=== PATIENT | female | born 1935 | race Caucasian/White ===

== ENCOUNTER 2024-04-28 08:53 | Inpatient (IN) | payer MEDICARE, SELFPAY ==
[2024-04-27 19:56] VITALS: BP 131/61; BMI 21.9
[2024-04-27 19:58] VITALS: BP 131/61
[2024-04-27 20:28] LABS: Hemoglobin 12.7 g/dL (12.0-16.0); Mean Corp Hgb Conc. 33.4 g/dL (33.0-37.0); Mean Corpuscular Volume 89.8 fL (81.0-99.0); Mean Platelet Volume 9.1 fL (7.4-10.4); Platelet Count 187 10^3/uL (130-400); Red Blood Cell Count 4.23 10^6/uL (4.20-5.40); Red Cell Dist. Width 17.2 % (11.5-14.5); White Blood Cell Count 6.8 10^3/uL (4.8-10.8)
--- NOTE | 2024-04-27 20:44 | ED.GENMED ---
History of Present Illness
General
Chief Complaint: Cardiac Symptoms
Source: patient
Time Seen by Provider: 04/27/24 19:53
Travel History
Have you had any contact with someone who has COVID-19?: No
Do you have any symptoms of coronavirus? Fever > 100 degrees, chills, cough, shortness of breath, sore throat, loss of taste or smell, muscle aches, or headache?: Yes
Symptoms:: SOB
History of Present Illness
History of Present Illness:
89-year-old female presents to the emergency room for evaluation of bradycardia, lethargy. Patient's [facility] She had been staying at a different facility where they were unhappy with her care.
While performing the intake protocol melany arellano found the patient to be lethargic and bradycardic. It was unclear if the patient had a history of bradycardia. She was sent for evaluation of this. Patient denies any symptoms at this time.
Specifically denies any chest pain, shortness of breath, dizziness. She has not had any syncopal episodes. No recent change in medications as far as the grandson knows. He has been in charge of her care for the past 2 months. Of note the patient
recently was found to have a mass in her left breast. This has not been worked up.
Past History
Past History
ED Past Medical History: CVA, Other (Gout, Osteroarthritis, Pagets) and Other (Kidney stones, meningioma, skin cancer, cataracts, rotator cuff injury, pancreatic cyst, DVT/PE); Negative Asthma, HTN, Hypercholesterolemia or NIDDM
ED Past Surgical History: Appendectomy and Gynecological (Hysterectomy)
Social History
Tobacco: Non-smoker
Alcohol: None
Drug: None
Personal:
Living: alone
Employment: Retired
Family History
Family History: Other ([place])
Phy Exam
Physical Exam
Physical Exam:
General: Awake, Alert, Oriented X3. No acute distress.
Vitals: Bradycardic, normotensive
Head: Atraumatic
Eyes: Pupils equal, EOMI
Throat: Airway intact, no exudates
Neck: Trachea midline
Breast: left breast has a roughly 2cm x 3cm mass located in outer-upper quadrant.
Lungs: Clear and equal b/l
Heart: bradycardic, Regular rate, no murmurs
Abd: Soft, Nontender, No pulsatile mass
Neuro: Nonfocal
Skin: Warm, dry, no rash
Extremities: pulses equal b/l, no edema
Course
Orders/Labs/Results
Orders:
Orders
04/27/24 19:55
Electrocardiogram (*1) Urgent
Reason for Study: Other
Other Reason for Exam: low hr
04/27/24 19:56
EKG- Treatment ONCE
04/27/24 20:13
Complete Blood Count/No Diff Urgent
Troponin I Urgent
04/27/24 20:43
Straight cath- Treatment ONCE
04/27/24 20:44
Cardiac Monitoring- Treatment ONCE
04/27/24 20:45
CT Head W/o Iv Contrast Urgent
Comment:
Reason For Exam: recent fall, headache
04/27/24 21:38
TSH Reflex To Free T4 Urgent
Urinalysis Reflex To Culture Urgent
Date Specimen was Collected: 04/27/24
Time Specimen was Collected: 21:08
Urine Microscopic Reflex Cult Urgent
Urine Culture Urgent
CYNTHIA Source: U
Specimen Description:
Date Specimen was Collected: 04/27/24
Time Specimen was Collected: 21:08
04/27/24 22:21
Comprehensive Metabolic Panel Urgent
Magnesium Urgent
Comment: ADD ON
04/27/24 22:55
Cephalexin Monohydrate [Keflex] 500 mg PO NOW STA
04/27/24 22:59
CefTRIAXone [Rocephin] 1,000 mg IV NOW STA
04/27/24 23:33
Admit/Transfer Patient As Directed
Co-Sign Provider:
Level of Care: Observation services
Assign to:: Telemetry
Physician / Group: meño
Diagnosis: UTI, bradycardia
Reason for Telemetry: Arrhythmia
Date to Stop Telemetry: 04/30/24
Time to Stop Telemetry: 11:00
Code Status As Directed
Resuscitation Status: Do not resuscitate
Reached after discussion with pt or family/Healthcare POA: Yes
04/27/24 23:34
DNR Bracelet Application ONCE
04/28/24 01:40
Acetaminophen [Tylenol] 650 mg PO Q4HPRN PRN
Magnesium Hydroxide [Milk of Magnesia] 30 ml PO [id number] PRN
04/28/24 01:40
CARDIOLOGY CONSULT Routine
Consulting Provider: Ky Bettencourt
Was physician already notified: No
Reason for consult: bradycardia
Consult Notification Routine
Specialty to Notify: Cardiology
Activity As Directed
Activity Level: As Tolerated
Vital Signs As Directed
Frequency: Per unit guidelines
DX Deep Vein Thrombosis Video Routine
04/28/24 02:00
0.9% Sodium Chloride 1000 ml [Nss] 1,000 ml IV 50 mls/hr
Flush (0.9% Sodium Chloride) [Flush (Nss)] See Dose Instructions IV PER PROTOCOL
04/28/24 Breakfast
Regular
At Your Request: Full Participation
Does patient need a safe tray?: No
04/28/24 07:00
Complete Blood Count/With Diff IN AM
Comprehensive Metabolic Panel IN AM
04/28/24 07:10
Ot Eval And Treat Routine
Pt Eval And Treat Routine
Activity Level: With Assistance
04/28/24 08:00
Acetaminophen [Tylenol] 500 mg PO BID
Heparin 5,000 units SC Q12
Levetiracetam [Keppra] 500 mg PO BID
Lidocaine [Lidocaine 4% Patch] 1 patch TOPICAL DAILY
Sertraline HCl [Zoloft] 50 mg PO DAILY
04/28/24 08:52
Bisacodyl [Dulcolax] 10 mg RECTAL NOW STA
04/28/24 09:00
Artificial Tears (Pf) [Refresh Eye Drops (Pf)] 1 drops OPHTH QID
04/28/24 Dinner
Regular
At Your Request: Non-Participating
Does patient need a safe tray?: No
04/28/24 18:00
Sennosides [Senokot] 17.2 mg PO QPM
04/28/24 20:00
Remove Patch [Remove Lidocaine Patch] 1 patch REMOVE DAILY@1999
04/29/24 00:00
CefTRIAXone [Rocephin] 1,000 mg IV Q24H
Sterile Water [Sterile Water For Injection] 10 ml IV Q24H
04/30/24 11:00
DC Protocol for Telemetry ONCE
Abnormal Lab Results
04/27/24 04/27/24 04/27/24
20:13 21:38 22:21
RBC
Hct
RDW 17.2 H %
(11.5-14.5)
Abs Immat Gran (auto)
Absolute Monos (auto)
Immature Gran %
Monocytes %
Chloride 109 H mmol/L
(98-107)
BUN 33 H mg/dl
(7-17)
Creatinine 1.1 H mg/dL
(0.6-1.0)
Glucose 105 H mg/dl
(70-99)
Alkaline Phosphatase 173 H U/L
(38-126)
Total Protein 5.6 L g/dl
(6.3-8.2)
Albumin 3.1 L g/dl
(3.5-5.0)
Ur Occult Blood Reflex Trace A
(Negative)
Urine Nitrite (Reflex) Positive A
(Negative)
Leukocyte Esterase Rfl 2+ A
(Negative)
Urine WBC (Reflex) 26-30 A /HPF
(0-5)
Urine Bacteria (Reflex) Many A
(Negative)
04/28/24
07:00
RBC 4.06 L 10^6/uL
(4.20-5.40)
Hct 36.7 L %
(37.0-47.0)
RDW 17.0 H %
(11.5-14.5)
Abs Immat Gran (auto) 0.1 H 10^3/uL
(0-0.05)
Absolute Monos (auto) 0.7 H 10^3/uL
(0.1-0.6)
Immature Gran % 0.9 H %
(0-0.5)
Monocytes % 11.1 H %
(1.7-9.3)
Chloride 111 H mmol/L
(98-107)
BUN 31 H mg/dl
(7-17)
Creatinine
Glucose
Alkaline Phosphatase 161 H U/L
(38-126)
Total Protein 5.4 L g/dl
(6.3-8.2)
Albumin 3.0 L g/dl
(3.5-5.0)
Ur Occult Blood Reflex
Urine Nitrite (Reflex)
Leukocyte Esterase Rfl
Urine WBC (Reflex)
Urine Bacteria (Reflex)
04/28/24 07:00
04/28/24 07:00
Vital Signs
Initial and Last Documented VS:
Initial Vital Signs
Pulse Resp Pulse Ox
48 14 99
04/27/24 19:55 04/27/24 19:55 04/27/24 19:55
Last Documented Vital Signs
Temp Pulse Resp BP Pulse Ox
97.7 F 52 18 146/108 96
04/28/24 11:58 04/28/24 14:31 04/28/24 14:31 04/28/24 14:31 04/28/24 10:45
MDM/Problems Addressed
Differential Diagnosis Includes:
Electrolyte abnormality, UTI, intracranial lesion causing [place] reflex such as a metastatic lesion,
MDM/Problems Addressed:
Patient presents with lethargy, left breast mass, possible urinary tract infection and bradycardia. EKG shows a sinus bradycardia with a first-degree AV block as well as some intraventricular conduction delay. Patient does not take any rate
lowering medications. Her QT is long as well. Urine is consistent with urinary tract infection. This becomes with Rocephin. Electrolytes are normal and not a cause for bradycardia. Unclear why the patient will be so bradycardic. During
previous admissions she has had normal sinus rhythm. Will hospitalize the patient overnight for observation, let cardiology see her in the morning to make sure they do not feel there is any intervention necessary for this bradycardia. Perhaps left
breast mass to be evaluated as well question
Chronic conditions affecting care: HTN
*Radiology
Radiology exam reviewed: radiology read reviewed
*Pulse Oximetry
Patient hypoxic: no
*EKG
Interpreted by ED Provider?: Yes
Interpretation: abnormal
Heart Rate: 46
Rate: bradycardiac
Rhythm: sinus
[place]: normal axis
Interval: first degree heart block
QRS Pattern: other (Nonspecific interventricular conduction delay)
Ischemia: non-specific ST changes
*[employer] Interpretation
Rate: bradycardiac
Interpretation: abnormal
Rhythm: sinus
*Critical Care Note
Total Time (30-74mins, 75-104mins- exclusive of procedures): Not Applicable
Patient Management
Social determinants of health affecting care: Living situation
ED Attending Note
-
Portions of this chart may have been created with voice recognition software.� Occasional wrong word or��sound alike� substitutions may have occurred due to the inherent limitations of voice recognition software.
Discharge Plan
Departure
Patient Disposition: Admit
Date of Disposition: 04/27/24
Time of Disposition: 23:14
Admit to: Telemetry
Presentation/result/management discussed w/ accepting MD/DO: Hospitalist
Condition: Fair
Discharge Problem:
Bradycardia, Acute UTI, Breast mass, left
Interventions
Interventions:
*Risk Screen - Suicide Last Done: 04/27/24 19:56
*General Assessment Last Done: 04/27/24 19:56
*Neglect/Abuse Screening Last Done: 04/27/24 19:56
ED- Fall Risk Assessment Last Done: 04/27/24 20:03
*ED COVID-19 Vaccine History Last Done: 04/27/24 19:56
ED- Pulmonary Assessment Last Done: 04/28/24 08:15
ED- Cardiac Assessment Last Done: 04/28/24 08:15
[2024-04-27 20:52] LABS: Troponin I 0.018 ng/ml
[2024-04-27 21:00] VITALS: BP 99/57
[2024-04-27 22:13] LABS: Urine Albumin Negative (Neg - Trace); Urine Bilirubin Negative (Negative); Urine Character Clear (Clear); Urine Color Yellow; Urine Glucose Negative (Negative); Urine Ketone Negative (Negative); Urine Leukocyte 2+ (Negative); Urine Nitrite Positive (Negative); Urine Occult Blood Trace (Negative); Urine Urobilinogen Negative (Neg - 1+)
[2024-04-27 22:19] LABS: Urine Bacteria Many (Negative); Urine Red Blood Cell 0-2 /HPF (0-2); Urine White Cell 26-30 /HPF (0-5)
[2024-04-27 22:44] LABS: TSH Reflex To Free T4 3.73 uIU/ml (0.47-4.68)
[2024-04-27 22:57] LABS: ALT (SGPT) 13 U/L (0-35); AST (SGOT) 22 U/L (14-36); Albumin 3.1 g/dl (3.5-5.0); Alkaline Phosphatase 173 U/L (38-126); Blood Urea Nitrogen 33 mg/dl (7-17); Calcium 8.4 mg/dl (8.4-10.2); Carbon Dioxide 25 mmol/L (22-30); Chloride 109 mmol/L (98-107); Estimated Creatinine Clearance 24 ml/min; Glucose 105 mg/dl (70-99); Magnesium 1.9 mg/dl (1.6-2.3); Potassium 4.5 mmol/L (3.5-5.1); Sodium 139 mmol/L (135-145); Total Bilirubin 0.3 mg/dl (0.2-1.3); Total Protein 5.6 g/dl (6.3-8.2); eGFR 48.03
--- NOTE | 2024-04-27 23:37 | HPS.HSE ---
Family Physician
-
Family Physician: NOT KNOW UNKNOWN - PT DOES
Chief Complaint
-
bradycardia
History of Present Illness
89-year-old female past medical history of CKD 3B, COPD, TIA, chronic meningioma, hyperlipidemia, anxiety, DVT, kidney stones, prior UTIs, glaucoma, cataracts, pancreatic cyst presenting with bradycardia and lethargy. Patient's family transferred
the patient to a [facility] today due to dissatisfaction with care. While there found patient to be lethargic and bradycardic. Patient denies any symptoms at this time apart from fatigue and ongoing increased urinary
frequency and some nausea. She denies any urinary burning. She denies chest pain, shortness of breath, dizziness. No episodes of syncope. No fevers or chills. No recent change in medications as per grandson who has been in charge of her care.
Patient recently been constipated and her last bowel movement may have been a few days ago
Patient was recently found to have a mass in her left breast which has not been worked up yet.
She denies smoking or alcohol use.
Medical History
Past Medical History
Past Medical History: Reports Other (CKD 3B, COPD, TIA, chronic meningioma, hyperlipidemia, anxiety, DVT, kidney stones, prior UTIs, glaucoma, cataracts, pancreatic cyst)
Past Surgical History: Reports Other ( Appendectomy and Gynecological (Hysterectomy))
Social History
Tobacco: Non-smoker
Alcohol: None
Drug: None
Family History
Family History: Not pertinent
Allergies / Home Medications
Allergies reflects when Allergies were last updated in [email or web address].
Home Medications with original date entered in [email or web address]
Allergy/Medication List:
Allergies
Allergy/AdvReac Type Severity Reaction Status Date / Time
amoxicillin [Amoxicillin] Allergy patient Verified 03/08/21 15:43
unsure
Home Medications
acetaminophen 325 mg tablet 650 mg PO Q4HPRN PRN mild pain/fever 04/27/24
acetaminophen 500 mg tablet 500 mg PO BID 04/27/24
levetiracetam 500 mg tablet 500 mg PO BID 04/27/24
lidocaine 4 % topical patch (Lidocaine Pain Relief) 1 patch topical DAILY 04/27/24
magnesium hydroxide 400 mg/5 mL oral suspension (Milk of Magnesia) 30 ml PO [id number] PRN if no bm in 3 days 04/27/24
phenylephrine HCl 0.25 % rectal suppository 1 supp MD [id number] PRN hemorrhoids 04/27/24
sennosides 8.6 mg tablet (senna) 17.2 mg PO QPM 04/27/24
sertraline 50 mg tablet (Zoloft) 50 mg PO DAILY 04/27/24
Review of Systems
-
History Source: Patient
A 12 point ROS was completed and negative except as noted: Yes
Constitutional: Reports See HPI
EENT: Reports No Symptoms
Respiratory: Reports No Symptoms
Cardiac: Reports No Symptoms
Abdomen/GI: Reports No Symptoms
: Reports No Symptoms
Musculoskeletal: Reports No Symptoms
Skin: Reports No Symptoms
Neurological: Reports No Symptoms
Endocrine: Reports No Symptoms
Hematologic/Lymphatic: Reports No Symptoms
Psych: Reports No Symptoms
Physical Exam
Vital Signs
Vital Signs
Temp Pulse Resp BP Pulse Ox
97.8 F 44 18 131/61 98
04/27/24 19:56 04/27/24 19:56 04/27/24 19:56 04/27/24 19:56 04/27/24 19:56
Physical Exam
General: Well Developed, Well Nourished and No Apparent Distress
HEENT: NormoCephalic, Moist mucous membranes and Atraumatic
Respiratory: Clear
Cardiac: S1/S2 and Regular Rhythm; No Murmur or Rub
GI: Soft, Non Tender, Non Distended and Normal Bowel Sounds; No Organomegaly
Rectal: Deferred by Provider
Musculoskeletal: No Clubbing, No Cyanosis and No Edema
Skin: No Rash
Neuro: Nonfocal/grossly intact
Laboratory Results
-
04/27/24 20:13
04/27/24 22:21
Laboratory Results
Total Bilirubin 0.3 mg/dl (0.2-1.3) 04/27/24 22:21
AST 22 U/L (14-36) 04/27/24 22:21
ALT 13 U/L (0-35) 04/27/24 22:21
Alkaline Phosphatase 173 U/L (38-126) H 04/27/24 22:21
Troponin I 0.018 ng/ml 04/27/24 20:13
Data Reviewed
-
Lab Data: Labs Reviewed by me
Old Records: Reviewed
Impression/Plan
-
IMPRESSION:
PLAN:
# Bradycardia/first-degree AV block
-Heart rate 30s to 40s
-Not convinced that bradycardia is the source of her symptoms which is more likely secondary to UTI
-TSH 3.7
-Cardiology consulted
# Urinary tract infection
-Likely the source of her fatigue
-Urine culture
-IV fluids
-Ceftriaxone
-Patient has previously grown Klebsiella multiple times and Aerococcus
# Constipation
-Continue senna
-Enema if no bowel movement tomorrow
Breast mass
-Outpatient mammography
CKD 3B
-renal function stable
COPD
History of TIA
Chronic meningioma
-CT head shows that the meningioma is slightly increased in size compared to 2020
-Unclear why she takes Keppra, no seizure history documented
Hyperlipidemia
History of DVT/pulmonary embolism
Anxiety/depression
-Continue sertraline
Kidney stones
DNR/DNI
DVT prophylaxis heparin
Regular
[2024-04-28] VITALS (10 sets, daily range): BP systolic 113–149; BP diastolic 37–108; PULSE 54; O2SAT 97; BMI 21.9
[2024-04-28] MEDS: ROCEPHIN 1000 MG IV (00:31)
[2024-04-28] MEDS: NSS 1000 IV ×2 (02:13→21:05)
--- NOTE | 2024-04-28 06:57 | W.PN.HOSP.TC ---
Today's Communication/Plan
-
cont abx
follow urine culture
once suppository
check ct abd/pelvis
risperidone prn agitation, IV haldol if not tolerating po
Assessment / Plan
Assessment / Plan
Physical Exam
General: Well Developed, Well Nourished and No Apparent Distress
HEENT: NormoCephalic, Moist mucous membranes and Atraumatic
Respiratory: Clear
Cardiac: S1/S2 and Regular Rhythm; No Murmur or Rub
GI: Soft, Non Tender, Non Distended and Normal Bowel Sounds; No Organomegaly
Musculoskeletal: No Clubbing, No Cyanosis and No Edema
Skin: No Rash
Neuro: Oriented x3 but fluctuating mental status throughout the idea alternating calm cooperative paranoid ideation agitation
89F CKD3 COPD TIA chronic meningioma HLD anxiety DVT/PE Glaucoma Cataracts pancreatic cyst legally blind wheelchair bound, Lt breast mass outpt work up pending, here for evaluation fatigue bradycardia likely urinary tract infection.
#Bradycardia/first-degree AV block
-Heart rate 30s to 40s
-TSH 3.7
-Cardiology consult appreciated no intervention recommended
#Urinary tract infection, hx frequent UTI
-Likely the source of her fatigue
-Urine culture pending
-IV fluids
-Ceftriaxone
-Patient has previously grown Klebsiella multiple times and Aerococcus
-Check CT abd/pelvis
#Acute Metabolic Encephalopathy/Delirium d/t UTI
minimize external stimuli as possible
QTc wnl
PO risperidone 0.25 mg BIDprn agitation, IV Haldol 0.5 mg prn agitation last resort if not tolerating oral.
# Constipation
-Continue senna
-once suppository attempted 04/28
Lt Breast mass
-Outpatient mammography
hx CKD 3
-renal function stable
COPD
History of TIA
Chronic meningioma
-CT head shows meningioma slightly increased in size compared to 2020, no acute abn's noted
Hyperlipidemia
History of DVT/pulmonary embolism
Anxiety/depression
-Continue sertraline
Kidney stones
DNR/DNI
DVT prophylaxis heparin
Regular
discussed with patient's grandoj Prado over phone
I spent a total of 55 minutes with the patient or on the floor. More than 50% of this time involved counseling and coordination of care.
Anticipated Discharge: 24 - 48 hours
Subjective/Interval History
-
Date of Service: April 28, 2024
Fluctuating mental status throughout the day confusion paranoid ideation agitation.
Objective Data
-
Labs:
Laboratory Results
04/27/24 04/27/24 04/27/24
20:13 21:38 22:21
WBC 6.8
Hgb 12.7
Hct 38.0
Plt Count 187
Sodium Cancelled Cancelled 139
Potassium Cancelled Cancelled 4.5
Chloride Cancelled Cancelled 109 H
Carbon Dioxide Cancelled Cancelled 25
BUN Cancelled Cancelled 33 H
Creatinine Cancelled Cancelled 1.1 H
Glucose Cancelled Cancelled 105 H
Calcium Cancelled Cancelled 8.4
Total Bilirubin Cancelled Cancelled 0.3
AST Cancelled Cancelled 22
ALT Cancelled Cancelled 13
Alkaline Phosphatase Cancelled Cancelled 173 H
04/28/24
06:00
WBC Pending
Hgb Pending
Hct Pending
Plt Count Pending
Sodium Pending
Potassium Pending
Chloride Pending
Carbon Dioxide Pending
BUN Pending
Creatinine Pending
Glucose Pending
Calcium Pending
Total Bilirubin Pending
AST Pending
ALT Pending
Alkaline Phosphatase Pending
Vital Signs:
Vital Signs
Temp Pulse Resp BP Pulse Ox
98.2 F 79 26 123/63 97
04/28/24 00:38 04/28/24 05:00 04/28/24 05:00 04/28/24 04:07 04/28/24 04:15
[2024-04-28 07:14] LABS: % Basophils 0.9 % (0-2); % Eosinophils 2.5 % (0-6); % Immature Granulocytes 0.9 % (0-0.5); % Lymphocytes 28.5 % (20.5-51.1); % Monocytes 11.1 % (1.7-9.3); % Neutrophils 56.1 % (42.2-75.2); Absolute Basophils 0.1 10^3/uL (0-0.2); Absolute Eosinophils 0.2 10^3/uL (0-0.7); Absolute Immature Granulocytes 0.1 10^3/uL (0-0.05); Absolute Lymphocytes 1.9 10^3/uL (1.2-3.4); Absolute Monocytes 0.7 10^3/uL (0.1-0.6); Absolute Neutrophils 3.7 10^3/uL (1.4-6.5); Hematocrit 36.7 % (37.0-47.0); Hemoglobin 12.1 g/dL (12.0-16.0); Mean Corpuscular Hgb 29.8 pg (27.0-31.0); Mean Corpuscular Volume 90.4 fL (81.0-99.0); Mean Platelet Volume 9.7 fL (7.4-10.4); Nucleated Red Blood Cells % 0 %; Platelet Count 177 10^3/uL (130-400); Red Blood Cell Count 4.06 10^6/uL (4.20-5.40); White Blood Cell Count 6.7 10^3/uL (4.8-10.8)
[2024-04-28 07:28] LABS: ALT (SGPT) 12 U/L (0-35); AST (SGOT) 20 U/L (14-36); Alkaline Phosphatase 161 U/L (38-126); Blood Urea Nitrogen 31 mg/dl (7-17); Calcium 8.5 mg/dl (8.4-10.2); Carbon Dioxide 25 mmol/L (22-30); Chloride 111 mmol/L (98-107); Estimated Creatinine Clearance 29 ml/min; Glucose 99 mg/dl (70-99); Potassium 4.6 mmol/L (3.5-5.1); Sodium 143 mmol/L (135-145); Total Bilirubin 0.2 mg/dl (0.2-1.3); Total Protein 5.4 g/dl (6.3-8.2); eGFR > 60.00
--- NOTE | 2024-04-28 08:29 | CON.CAR ---
Consultation
Consultation Request
Date/Time Consultation Requested: 04/28/24
Date/Time Consultation Performed: 04/28/24
Requesting Provider: Dr Schofield
Performing Provider: dr oropeza
Reason for Consultation: bradycardia
Medical History
-
Chief Complaint: Bradycardia
History of Present Illness:
89-year-old female with a past medical history of CKD 3B, COPD, chronic meningioma, hyperlipidemia, prior DVT, glaucoma, pancreatic cyst with bradycardia and lethargy. She was found to have a UTI. Currently she states she has a lot on her mind. She
has no cp, sob or dizziness. She has dysuria and urinary frequency. She is blind and has been in a wheelchair for 2 years.
Past Medical History
Past Medical History: COPD, Hypercholesterolemia and Renal Failure
Social History
Tobacco: Non-Smoker
Living: With Family
Family History
Family History: Reviewed & Not Pertinent
Allergies / Home Medications
Allergy/AdvReac Type Severity Reaction Status Date / Time
amoxicillin [Amoxicillin] Allergy patient Verified 03/08/21 15:43
unsure
�Medication �Instructions �Recorded �Confirmed �Type
acetaminophen 325 mg tablet 650 mg PO Q4HPRN PRN mild 04/27/24 04/27/24 History
pain/fever
acetaminophen 500 mg tablet 500 mg PO BID 04/27/24 04/27/24 History
levetiracetam 500 mg tablet 500 mg PO BID 04/27/24 04/27/24 History
lidocaine 4 % topical patch 1 patch topical DAILY 04/27/24 04/27/24 History
(Lidocaine Pain Relief)
magnesium hydroxide 400 mg/5 mL 30 ml PO [id number] PRN if no bm in 3 04/27/24 04/27/24 History
oral suspension (Milk of Magnesia) days
phenylephrine HCl 0.25 % rectal 1 supp MI [id number] PRN hemorrhoids 04/27/24 04/27/24 History
suppository
sennosides 8.6 mg tablet (senna) 17.2 mg PO QPM 04/27/24 04/27/24 History
sertraline 50 mg tablet (Zoloft) 50 mg PO DAILY 04/27/24 04/27/24 History
Review of Systems
-
All other systems: Negative unless noted
Physical Exam
Vital Signs
Temp Pulse Resp BP Pulse Ox
98.3 F 54 18 120/73 95
04/28/24 08:05 04/28/24 08:15 04/28/24 08:15 04/28/24 08:05 04/28/24 08:15
Lab Results
04/28/24 07:00
04/28/24 07:00
Troponin I 0.018 ng/ml 04/27/24 20:13
Physical Exam
General: Well Developed, Well Nourished, No Apparent Distress, Comfortable and Respiratory Distress
Respiratory: Clear, Wheezes (none), Crackles (none) and Rhonchi (none)
Cardiac: S1/S2, Regular Rhythm, Murmur (none) and Peripheral Edema (none)
GI: Non Tender and Non Distended
Musculoskeletal: No Clubbing and No Cyanosis
Neuro: AO x 3
Impression / Plan
-
89-year-old female with a past medical history of CKD 3B, COPD, hyperlipidemia and blindness presents for lethargy, today complaining of dysuria and urinary frequency. We are asked to comment on her bradycardia.
Bradycardia:
Rates in the 40s to 50s, with a right bundle branch block and first-degree AV block.
No evidence of high-grade AV block or significant pauses. No evidence of sinus arrest.
I doubt this bradycardia is the cause of her symptoms. Would continue to monitor on telemetry.
Avoid AV romana blocking agents or those known to cause bradycardia.
I suspect her lethargy is more linked to a UTI.
monitor telemetry
RBBB:
-chronic, present in 2012 at the time of normal heart function on echo
I will review her tele tomorrow but otherwise, see again at your request
Data Reviewed
-
EKG: Tracing Personally Visualized and interpreted (04/27/2024 sinus bradycardia with primary AV conduction delay at a rate of 46 bpm, right bundle branch block nonspecific T wave abnormality, when compared to the prior T wave abnormality is new.,)
and Other (tele review: sinus bradycardia 40-50's. No pauses, high grade av block.)
Radiology: Image Personally Visualized and interpreted and Report Reviewed by me (CT head with out IV contrast 04/27/2024 shows no acute increase for cranial abnormalities, nonspecific white matter changes. Right middle fossa meningioma with slight
increase from 2020.)
Medical Tests (Nuc Med, Echo etc): Discussed with Physician (reviewed ecg and tele finding with Dr Camacho )
--- NOTE | 2024-04-28 08:55 | W.PN.UPDATE ---
Update Note
Progress Note Update
recurrent UTI reporting right groin pain following hysterectomy years ago
-cont IV abx, check CT abd/pelvis w contrast
Constipation
-once suppository
Dry eyes, hx cataracts, legally blind
-Artificial tears QID
[2024-04-28] MEDS: ZOLOFT 50 MG PO (09:22)
[2024-04-28] MEDS: HEPARIN 5000 UNITS SC (09:22)
[2024-04-28] MEDS: TYLENOL 500 MG PO ×2 (09:22→20:01)
[2024-04-28] MEDS: KEPPRA 500 MG PO ×2 (09:22→20:01)
[2024-04-28] MEDS: LIDOCAINE 4% PATCH 1 PATCH TOPICAL (09:23)
[2024-04-28] MEDS: REFRESH EYE DROPS (PF) 1 DROPS OPHTH ×3 (09:46→20:02)
[2024-04-28] MEDS: OMNIPAQUE 50 ML PO (09:46)
[2024-04-28] MEDS: DULCOLAX 10 MG RECTAL (12:59)
[2024-04-28] MEDS: REFRESH EYE DROPS (PF) OPHTH (16:17)
[2024-04-28] MEDS: SENOKOT PO (16:38)
[2024-04-28] MEDS: HALDOL 0.5 MG IV (17:03)
[2024-04-28] MEDS: HEPARIN SC (20:15)
[2024-04-29] MEDS: ROCEPHIN 1000 MG IV (00:51)
[2024-04-29] MEDS: STERILE WATER FOR INJECTION 10 ML IV (00:52)
[2024-04-29 03:00] VITALS: BP 114/58
--- NOTE | 2024-04-29 07:24 | W.PN.HOSP.TC ---
Addendum entered and electronically signed by Yessica Camacoh MD 04/29/24 14:36:
Correction, Patient's daughter passed a month ago, today is patient's daughter's birthday
Original Note:
Today's Communication/Plan
-
cont abx
follow cultures
psych eval
PT/OT
Assessment / Plan
Assessment / Plan
Physical Exam
General: Well Developed, Well Nourished and No Apparent Distress
HEENT: NormoCephalic, Moist mucous membranes and Atraumatic
Respiratory: Clear
Cardiac: S1/S2 and Regular Rhythm; No Murmur or Rub
GI: Soft, Non Tender, Non Distended and Normal Bowel Sounds; No Organomegaly
Musculoskeletal: No Clubbing, No Cyanosis and No Edema
Skin: No Rash
Neuro: AOx3
Psych: calm cooperative flat effect slow mentation, tearful at times reporting anniversary of daughter's passing
89F CKD3 COPD TIA chronic meningioma HLD anxiety DVT/PE Glaucoma Cataracts pancreatic cyst legally blind wheelchair bound, Lt breast mass outpt work up pending, here for evaluation fatigue bradycardia likely urinary tract infection.
#Bradycardia/first-degree AV block
-Heart rate 30s to 40s
-TSH 3.7
-Cardiology consult appreciated no intervention recommended
#Urinary tract infection, hx frequent UTI
-Likely the source of her fatigue
-Urine culture appreciated E. coli sensitivities pending
-IV fluids
-Ceftriaxone
CT abd/pelvis appreciated
-Tiny pericardial effusion.
-0.6 cm right lower lobe pulmonary nodule as compared to 0.4 cm on relative remote prior study May 10, 2019, indeterminate.
-Markedly atrophic, but functioning right kidney again seen. No findings to confirm obstructive uropathy bilaterally.
-Small simple appearing left renal cysts as well as additional subcentimeter low-attenuation left renal lesions too small to characterize.
-At least relative diffuse wall thickening as a result of underdistention. Other etiology such as cystitis cannot be excluded.
-Right inguinal hernia containing nondilated loop of small bowel and some minimal fluid without proximal bowel dilatation. Clinical correlation recommended as to any direct associated symptomatology.
-Relative slightly prominent gallbladder with gallstones and borderline gallbladder wall thickening. If there is clinical symptomatology referable to the right upper quadrant, suggest ultrasound for more complete evaluation.
-Redundant sigmoid colon with marked diverticulosis.
-Atrophic pancreas with likely tiny cysts without gross significant change. This could be further evaluated with MRI, if clinically warranted.
#Acute Metabolic Encephalopathy/Delirium d/t UTI
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
minimize external stimuli as possible
QTc wnl
PO risperidone 0.25 mg BIDprn agitation, IV Haldol 0.5 mg prn agitation last resort if not tolerating oral. (received one dose haldol so far this hosptatlization)
psych eval requested possible major depressive disorder pseudodementia psychosis
# Constipation
-Continue senna
-once suppository attempted 04/28
-constipation since resolved
Lt Breast mass
-Outpatient mammography
hx CKD 3
-renal function stable
COPD
History of TIA
Chronic meningioma
-CT head shows meningioma slightly increased in size compared to 2020, no acute abn's noted
Hyperlipidemia
History of DVT/pulmonary embolism
Anxiety/depression
-Continue sertraline
Kidney stones
DNR/DNI
DVT prophylaxis heparin
Regular
discussed with patient's grandson Johan over phone
I spent a total of 55 minutes with the patient or on the floor. More than 50% of this time involved counseling and coordination of care.
Anticipated Discharge: 24 - 48 hours
Subjective/Interval History
-
Date of Service: April 29, 2024
Seen and examined at bedside in no acute distress sitting up comfortably in bed. AOx3 initially flat effect. Patient denies depression but reports significant 'sadness,' becoming tearful. She reports today as anniversary of her daughters .
Denies thoughts of harming self or others. Reportedly patient had seen a vision of her daughter
Objective Data
-
Labs:
Laboratory Results
04/29/24
07:02
WBC Pending
Hgb Pending
Hct Pending
Plt Count Pending
Sodium Pending
Potassium Pending
Chloride Pending
Carbon Dioxide Pending
BUN Pending
Creatinine Pending
Glucose Pending
Calcium Pending
Vital Signs:
Vital Signs
Temp Pulse Resp BP Pulse Ox
97.7 F 50 18 114/58 97
04/29/24 03:00 04/29/24 03:00 04/29/24 03:00 04/29/24 03:00 04/29/24 03:00
I&O
04/28/24 04/29/24 04/30/24
06:59 06:59 06:59
Intake Total 600 / 600
Output Total 200 / 200
Balance 400 / 400
[2024-04-29 07:30] LABS: Hematocrit 36.6 % (37.0-47.0); Hemoglobin 12.1 g/dL (12.0-16.0); Mean Corp Hgb Conc. 33.1 g/dL (33.0-37.0); Mean Corpuscular Volume 90.6 fL (81.0-99.0); Mean Platelet Volume 9.5 fL (7.4-10.4); Platelet Count 160 10^3/uL (130-400); Red Blood Cell Count 4.04 10^6/uL (4.20-5.40); Red Cell Dist. Width 16.8 % (11.5-14.5)
[2024-04-29] MEDS: REFRESH EYE DROPS (PF) 1 DROPS OPHTH ×4 (08:30→20:21)
[2024-04-29] MEDS: LIDOCAINE 4% PATCH 1 PATCH TOPICAL (08:31)
[2024-04-29] MEDS: TYLENOL 500 MG PO ×2 (08:31→20:15)
[2024-04-29] MEDS: MIRALAX 17 GRAMS PO (08:31)
[2024-04-29] MEDS: HEPARIN 5000 UNITS SC ×2 (08:32→20:14)
[2024-04-29] MEDS: KEPPRA 500 MG PO ×2 (08:32→20:21)
[2024-04-29] MEDS: ZOLOFT 50 MG PO (08:32)
[2024-04-29 08:58] LABS: Blood Urea Nitrogen 24 mg/dl (7-17); Calcium 8.8 mg/dl (8.4-10.2); Carbon Dioxide 19 mmol/L (22-30); Chloride 115 mmol/L (98-107); Estimated Creatinine Clearance 37 ml/min; Glucose 68 mg/dl (70-99); Magnesium 2.2 mg/dl (1.6-2.3); Phosphorus 3.5 mg/dl (2.5-4.5); Potassium 4.9 mmol/L (3.5-5.1); Sodium 140 mmol/L (135-145); eGFR > 60.00
[2024-04-29 09:06] VITALS: BP 99/55
--- NOTE | 2024-04-29 09:10 | W.PN.UPDATE ---
Update Note
Progress Note Update
Tele check, sinus bradycardial with first degree avb and bbb. No pauses, no heart block.
No indication for pacemaker
will review again at your request.
--- NOTE | 2024-04-29 14:19 | CM ---
assistant service manager reviewed patient's chart and met with patient and spoke with Mohit at [facility] who was visiting patient, pillowcase maker also spoke with patient's grandson, Johan, patient has been at [facility] for 1/2 an hour per grandson
before she was brought to [facility]. Patient requires assist with adl's and ambulates with a walker, patient also has a w/c. Anny has been at two skilled facilities recently and patient's emersonandieoj Johan refuses for patient to go to
a skilled facility again. Patient has been at [facility] and [facility].
Plan; Patent to return to [facility] when stable.
[phone]
--- NOTE | 2024-04-29 15:22 | CON.MD ---
Consultation - Medical
-
patient seen chart reviewed. spoke with nursing. patient is an 89 year old woman who came to [facility] from [facility] in [facility]. she quickly told me she is an [place] citizen. she comes to with bradycardia and lethargy and also she tells me after
a fall. she described in detail how she fell 'my rear end ended up in the trash basket' and told me she had injured her left side adding 'do you know where i can get a new left half?' i asked her about the events of last night which including
agitation necessitating haldol prn and she did not remember them but she did tell me she felt terrible yesterday and woke this am after having a nightmare that seemed very real to her and made her feel bad although the day has improved since and now
she feels quite well. she was happily eating an entire bag of chocolate covered pretzels and told me they were delicious. she says she has no hx of depression (she does take zoloft 50 mg daily) but she does experience sadness for the 'people i
lost' including her who of lung cancer around 2014 and her daughter who of lung cancer as well in january of this year. her d's birthday would have been around this time of the end 'end of march'. she sleeps fairly well but sometimes
she has terrible nightmares which scare her when she wakes up. . she has some appetite. she can enjoy some things eg being with her family. she is unhappy that she cannot see. says blindness was something she always feared and she would ask her
eye md if she was going blind and the doctor would reply 'not if i can help it'. she is not suicidal. she does not hear voices. she does say that she saw her d who is but says if was not recently but some time ago and she could not tell me
when. patient was found to have uti for which she is currently being treated. she told me her memory is 'better than it should be (for her age)'
past psych hx patient is taking zoloft 50 mg daily .she was not aware she was being rx for depression
medical hx meningioma prophyllactic keppra hx uti w current infection see above, kidney stones hld copd tia glaucoma cataracts pancreatic cyst hip fx dvt breast lump has not been worked up yet. there are some abn noted of pelvic abd cat cat
brain no acute findings.
substance abuse none ' i only take tylenol nothing stronger....'
family hx 'absolutely not'
social hx patient had a good childhood which she remembers very fondly. she came to [facility] in [birth year]. she was happily til her h in 2014. she had two kids one is seven grands and eight great grands. over the course of her life she
had many jobs. she resides in assisted living having sold her own home.
mse alert ox3 she told me maryann is the president 'sadly'. speech nl rate and tone thought process coherent and goal oriented at this time no over psychosis mood is euthymic i would say at the time of this interview. she said she was feeling
'good. affect appropriate no si aver intelligence insight judgment.
dx toxic metabolic encephalopathy resolving perhaps there is underlying dysthymia since she is on zoloft but i could not say from today that she is depressed
plan would continue w risperdal as ordered on a prn basis for agitation . could use haldol iv prn for severe anxiety but would use only o.25 mg will look in on her tomorrow.
[2024-04-29 15:58] VITALS: BP 128/74
[2024-04-29] MEDS: SENOKOT 17.1999999999999993 MG PO (17:17)
[2024-04-29] MEDS: NSS 1000 IV (17:17)
[2024-04-29] MEDS: SODIUM BICARBONATE 650 MG PO ×2 (17:17→20:21)
[2024-04-29 19:29] VITALS: BP 123/77
[2024-04-29 23:26] VITALS: BP 126/65
[2024-04-30] MEDS: ROCEPHIN 1000 MG IV (00:26)
[2024-04-30] MEDS: FLUSH (NSS) 2 FLUSH IV (00:27)
[2024-04-30] MEDS: STERILE WATER FOR INJECTION 10 ML IV (00:27)
[2024-04-30 03:39] VITALS: BP 114/78
[2024-04-30 07:34] LABS: Hematocrit 35.6 % (37.0-47.0); Hemoglobin 11.8 g/dL (12.0-16.0); Mean Corp Hgb Conc. 33.1 g/dL (33.0-37.0); Mean Corpuscular Hgb 29.9 pg (27.0-31.0); Mean Corpuscular Volume 90.1 fL (81.0-99.0); Mean Platelet Volume 9.1 fL (7.4-10.4); Platelet Count 175 10^3/uL (130-400); Red Blood Cell Count 3.95 10^6/uL (4.20-5.40); Red Cell Dist. Width 16.9 % (11.5-14.5); White Blood Cell Count 7.1 10^3/uL (4.8-10.8)
[2024-04-30 07:56] LABS: Blood Urea Nitrogen 24 mg/dl (7-17); Carbon Dioxide 22 mmol/L (22-30); Chloride 115 mmol/L (98-107); Estimated Creatinine Clearance 37 ml/min; Glucose 109 mg/dl (70-99); Magnesium 1.8 mg/dl (1.6-2.3); Potassium 4.5 mmol/L (3.5-5.1); Sodium 142 mmol/L (135-145); eGFR > 60.00
--- NOTE | 2024-04-30 08:22 | W.PN.HOSP.TC ---
Today's Communication/Plan
-
transition IV abx to PO
monitor
discharge planning back to [facility]
Assessment / Plan
Assessment / Plan
Physical Exam
General: Well Developed, Well Nourished and No Apparent Distress
HEENT: NormoCephalic, Moist mucous membranes and Atraumatic
Respiratory: Clear
Cardiac: S1/S2 and Regular Rhythm; No Murmur or Rub
GI: Soft, Non Tender, Non Distended and Normal Bowel Sounds; No Organomegaly
Musculoskeletal: No Clubbing, No Cyanosis and No Edema
Skin: No Rash
Neuro: AOx3
Psych: calm
89F CKD3 COPD TIA chronic meningioma HLD anxiety DVT/PE Glaucoma Cataracts pancreatic cyst legally blind wheelchair bound, Lt breast mass outpt work up pending, here for evaluation fatigue bradycardia likely urinary tract infection.
#Bradycardia/first-degree AV block
-Heart rate 30s to 40s
-TSH 3.7
-Cardiology consult appreciated no intervention recommended
#Urinary tract infection, hx frequent UTI
-Likely the source of her fatigue
-Urine culture appreciated E. coli pansensitive
-IV fluids completed
-Ceftriaxone transitioned to Cefuroxime
CT abd/pelvis appreciated
-Tiny pericardial effusion.
-0.6 cm right lower lobe pulmonary nodule as compared to 0.4 cm on relative remote prior study May 10, 2019, indeterminate.
-Markedly atrophic, but functioning right kidney again seen. No findings to confirm obstructive uropathy bilaterally.
-Small simple appearing left renal cysts as well as additional subcentimeter low-attenuation left renal lesions too small to characterize.
-At least relative diffuse wall thickening as a result of underdistention. Other etiology such as cystitis cannot be excluded.
-Right inguinal hernia containing nondilated loop of small bowel and some minimal fluid without proximal bowel dilatation. Clinical correlation recommended as to any direct associated symptomatology.
-Relative slightly prominent gallbladder with gallstones and borderline gallbladder wall thickening. If there is clinical symptomatology referable to the right upper quadrant, suggest ultrasound for more complete evaluation.
-Redundant sigmoid colon with marked diverticulosis.
-Atrophic pancreas with likely tiny cysts without gross significant change. This could be further evaluated with MRI, if clinically warranted.
#Acute Metabolic Encephalopathy/Delirium d/t UTI
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
minimize external stimuli as possible
QTc wnl
PO risperidone 0.25 mg BIDprn agitation, IV Haldol 0.5 mg prn agitation last resort if not tolerating oral. (received one dose haldol so far this hospitalization)
psych eval appreciated
# Constipation
-Continue senna
-once suppository attempted 04/28
-constipation since resolved
Lt Breast mass
-Outpatient mammography
hx CKD 3
-renal function stable
COPD
History of TIA
Chronic meningioma
-CT head shows meningioma slightly increased in size compared to 2020, no acute abn's noted
Hyperlipidemia
History of DVT/pulmonary embolism
Anxiety/depression
-Continue sertraline
Kidney stones
DNR/DNI
DVT prophylaxis heparin
Regular
discussed with patient's grandson Johan over phone
I spent a total of 55 minutes with the patient or on the floor. More than 50% of this time involved counseling and coordination of care.
Anticipated Discharge: 24 - 48 hours
Subjective/Interval History
-
Date of Service: April 30, 2024
Seen and examined at bedside in no acute distress resting comfortably in bed. No new acute issues.
Objective Data
-
Labs:
Laboratory Results
04/30/24
07:21
WBC 7.1
Hgb 11.8 L
Hct 35.6 L
Plt Count 175
Sodium 142
Potassium 4.5
Chloride 115 H
Carbon Dioxide 22
BUN 24 H
Creatinine 0.7
Glucose 109 H
Calcium 8.0 L
Vital Signs:
Vital Signs
Temp Pulse Resp BP Pulse Ox
97.4 F 81 20 114/78 95
04/30/24 03:39 04/30/24 03:39 04/30/24 03:39 04/30/24 03:39 04/30/24 03:39
I&O
04/29/24 04/30/24 05/01/24
06:59 06:59 06:59
Intake Total 600 / 600 480 / 480
Output Total 200 / 200
Balance 400 / 400 480 / 480
[2024-04-30 08:25] VITALS: BP 140/71
[2024-04-30] MEDS: HEPARIN 5000 UNITS SC ×2 (08:52→21:27)
[2024-04-30] MEDS: TYLENOL 500 MG PO ×2 (08:52→21:28)
[2024-04-30] MEDS: REFRESH EYE DROPS (PF) 1 DROPS OPHTH ×4 (08:53→21:28)
[2024-04-30] MEDS: MIRALAX 17 GRAMS PO (08:55)
[2024-04-30] MEDS: LIDOCAINE 4% PATCH 1 PATCH TOPICAL (08:55)
[2024-04-30] MEDS: KEPPRA 500 MG PO ×2 (08:55→21:28)
[2024-04-30] MEDS: SODIUM BICARBONATE 650 MG PO (08:56)
[2024-04-30] MEDS: ZOLOFT 50 MG PO (08:56)
--- NOTE | 2024-04-30 09:05 | W.PN.UPDATE ---
Update Note
Progress Note Update
patient seen chart reviewed. mrs flanagan reported to me that she is tired today. it was early in the am when i saw her. she seemed a little more confused than yesterday but then told me that with her vision it is hard for her to say if it is day or
night and she did not sleep well last night. said she felt 'excited'. she did not it seems require a prn. i told her her breakfast was here and nsg would be in to help her and she said she was hungry. did not make any changes in psych meds. would
continue as they are.
[2024-04-30 11:05] VITALS: BP 146/76
[2024-04-30] MEDS: RISPERDAL 0.25 MG PO ×2 (12:50→21:37)
[2024-04-30] MEDS: NSS 1000 IV (12:51)
[2024-04-30 16:02] VITALS: BP 151/85
[2024-04-30] MEDS: SENOKOT 17.1999999999999993 MG PO (17:54)
[2024-04-30 19:38] VITALS: BP 168/102
[2024-04-30] MEDS: CEFTIN 250 MG PO (21:27)
[2024-04-30 23:45] VITALS: BP 162/91
--- NOTE | 2024-05-01 06:58 | W.PN.HOSP.TC ---
Today's Communication/Plan
-
cont cefuroxime
rispderal as per psych
trial bedtime trazodone to help regulate sleep cycle
IVF 1/2 NS
potassium restricted diet.
Assessment / Plan
Assessment / Plan
Physical Exam
General: Well Developed, Well Nourished and No Apparent Distress
HEENT: NormoCephalic, Moist mucous membranes and Atraumatic
Respiratory: Clear
Cardiac: S1/S2 and Regular Rhythm; No Murmur or Rub
GI: Soft, Non Tender, Non Distended and Normal Bowel Sounds; No Organomegaly
Musculoskeletal: No Clubbing, No Cyanosis and No Edema
Skin: No Rash
Neuro: AOx3
Psych: calm
89F CKD3 COPD TIA chronic meningioma HLD anxiety DVT/PE Glaucoma Cataracts pancreatic cyst legally blind wheelchair bound, Lt breast mass outpt work up pending, here for evaluation fatigue bradycardia likely urinary tract infection.
#Bradycardia/first-degree AV block
-Heart rate 30s to 40s
-TSH 3.7
-Cardiology consult appreciated no intervention recommended
#Urinary tract infection, hx frequent UTI
-Likely the source of her fatigue
-Urine culture appreciated E. coli pansensitive
-IV fluids completed
-Ceftriaxone transitioned to Cefuroxime
CT abd/pelvis appreciated
-Tiny pericardial effusion.
-0.6 cm right lower lobe pulmonary nodule as compared to 0.4 cm on relative remote prior study May 10, 2019, indeterminate.
-Markedly atrophic, but functioning right kidney again seen. No findings to confirm obstructive uropathy bilaterally.
-Small simple appearing left renal cysts as well as additional subcentimeter low-attenuation left renal lesions too small to characterize.
-At least relative diffuse wall thickening as a result of underdistention. Other etiology such as cystitis cannot be excluded.
-Right inguinal hernia containing nondilated loop of small bowel and some minimal fluid without proximal bowel dilatation. Clinical correlation recommended as to any direct associated symptomatology.
-Relative slightly prominent gallbladder with gallstones and borderline gallbladder wall thickening. If there is clinical symptomatology referable to the right upper quadrant, suggest ultrasound for more complete evaluation.
-Redundant sigmoid colon with marked diverticulosis.
-Atrophic pancreas with likely tiny cysts without gross significant change. This could be further evaluated with MRI, if clinically warranted.
#Acute Metabolic Encephalopathy/Delirium d/t UTI
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
#Intermittent psychosis, possible sundowning/delirium
minimize external stimuli as possible
QTc wnl
PO risperidone 0.25 mg BIDprn agitation, IV Haldol 0.5 mg prn agitation last resort if not tolerating oral. (received one dose haldol so far this hospitalization)
psych eval appreciated scheduled risperdal started
Bedtime trazodone started. Possible blindness leading to disorganized sleep scheduled contributing to confusion
Hypernatremia
IVF 1/2NS started gentle hydration
Mild Hyperkalemia
-potassium restricted diet
# Constipation
-Continue senna
-once suppository attempted 04/28
-constipation since resolved
Lt Breast mass
-Outpatient mammography
reported hx CKD 3
ERIC resolved
-Initial Cr 1.1 improved to 0.7 likely baseline
-renal function stable
COPD
History of TIA
Chronic meningioma
-CT head shows meningioma slightly increased in size compared to 2020, no acute abn's noted
Hyperlipidemia
History of DVT/pulmonary embolism
Anxiety/depression
-Continue sertraline
Kidney stones
DNR/DNI
DVT prophylaxis heparin
Regular
discussed with patient's grandson Johan over phone
I spent a total of 55 minutes with the patient or on the floor. More than 50% of this time involved counseling and coordination of care.
Anticipated Discharge: 24 - 48 hours
Subjective/Interval History
-
Date of Service: May 01, 2024
Confused paranoid ideation accusing psychiatrist present at bedside of being 'ringleader' of plot to kill her.
Objective Data
-
Labs:
Laboratory Results
05/01/24
06:00
WBC Pending
Hgb Pending
Hct Pending
Plt Count Pending
Sodium Pending
Potassium Pending
Chloride Pending
Carbon Dioxide Pending
BUN Pending
Creatinine Pending
Glucose Pending
Calcium Pending
Vital Signs:
Vital Signs
Temp Pulse Resp BP Pulse Ox
98.5 F 111 20 162/91 96
05/01/24 03:45 05/01/24 03:45 05/01/24 03:45 04/30/24 23:45 05/01/24 03:45
I&O
04/29/24 04/30/24 05/01/24
06:59 06:59 06:59
Intake Total 600 / 600 480 / 480 500 / 500
Output Total 200 / 200
Balance 400 / 400 480 / 480 500 / 500
[2024-05-01 07:47] LABS: Hematocrit 40.5 % (37.0-47.0); Hemoglobin 13.4 g/dL (12.0-16.0); Mean Corp Hgb Conc. 33.1 g/dL (33.0-37.0); Mean Corpuscular Volume 90.6 fL (81.0-99.0); Mean Platelet Volume 9.3 fL (7.4-10.4); Platelet Count 204 10^3/uL (130-400); Red Blood Cell Count 4.47 10^6/uL (4.20-5.40); Red Cell Dist. Width 17.1 % (11.5-14.5)
[2024-05-01 08:00] VITALS: BP 144/84
[2024-05-01 08:06] LABS: Blood Urea Nitrogen 17 mg/dl (7-17); Calcium 9.3 mg/dl (8.4-10.2); Carbon Dioxide 21 mmol/L (22-30); Chloride 116 mmol/L (98-107); Estimated Creatinine Clearance 33 ml/min; Glucose 113 mg/dl (70-99); Magnesium 1.9 mg/dl (1.6-2.3); Phosphorus 3.4 mg/dl (2.5-4.5); Potassium 5.4 mmol/L (3.5-5.1); Sodium 149 mmol/L (135-145); eGFR > 60.00
[2024-05-01] MEDS: MIRALAX 17 GRAMS PO (08:39)
[2024-05-01] MEDS: ZOLOFT 50 MG PO (08:39)
[2024-05-01] MEDS: TYLENOL 500 MG PO ×2 (08:39→21:02)
[2024-05-01] MEDS: KEPPRA 500 MG PO ×2 (08:39→21:03)
[2024-05-01] MEDS: REFRESH EYE DROPS (PF) 1 DROPS OPHTH ×3 (08:39→21:03)
[2024-05-01] MEDS: CEFTIN 250 MG PO ×2 (08:39→21:02)
[2024-05-01] MEDS: LIDOCAINE 4% PATCH 1 PATCH TOPICAL (08:40)
[2024-05-01] MEDS: HEPARIN 5000 UNITS SC ×2 (08:40→21:03)
--- NOTE | 2024-05-01 11:38 | W.PN.UPDATE ---
Update Note
Progress Note Update
patient seen chart reviewed. discussed with nursing and with dr rankin. the patient is floridly psychotic today. she was accusing others including this flex o writer operator of trying to kill her. this is in great contrast to other interactions i have had with her.
dr rankin reassessing whether there is a physiologic reason for this decompensation. it is at this point interfering with her care. have ordered o.25 mg conc risperdal bid there are also prns of risperdal and iv haldol for severe agitation. dr rankin
suggested trazodone q hs to enable her hopefully to sleep. so ordered. monitor re orthostasis.
[2024-05-01] MEDS: 0.45%NACL 1000 IV (11:59)
[2024-05-01] MEDS: SENOKOT 17.1999999999999993 MG PO (18:16)
[2024-05-01] MEDS: REFRESH EYE DROPS (PF) OPHTH (18:17)
[2024-05-01 19:46] VITALS: BP 116/65
[2024-05-01] MEDS: RISPERDAL ORAL SOLUTION PO (22:58)
[2024-05-01 23:26] VITALS: BP 105/57
[2024-05-02] MEDS: 0.45%NACL 1000 IV (03:02)
[2024-05-02 07:00] VITALS: BP 105/58
[2024-05-02 07:45] LABS: Hematocrit 33.4 % (37.0-47.0); Hemoglobin 11.2 g/dL (12.0-16.0); Mean Corp Hgb Conc. 33.5 g/dL (33.0-37.0); Mean Corpuscular Hgb 30.4 pg (27.0-31.0); Mean Corpuscular Volume 90.8 fL (81.0-99.0); Mean Platelet Volume 9.9 fL (7.4-10.4); Platelet Count 161 10^3/uL (130-400); Red Blood Cell Count 3.68 10^6/uL (4.20-5.40); White Blood Cell Count 5.4 10^3/uL (4.8-10.8)
[2024-05-02 08:22] LABS: Blood Urea Nitrogen 16 mg/dl (7-17); Calcium 8.5 mg/dl (8.4-10.2); Carbon Dioxide 19 mmol/L (22-30); Chloride 115 mmol/L (98-107); Estimated Creatinine Clearance 37 ml/min; Glucose 70 mg/dl (70-99); Sodium 139 mmol/L (135-145); eGFR > 60.00
[2024-05-02] MEDS: REFRESH EYE DROPS (PF) 1 DROPS OPHTH ×3 (09:02→15:51)
[2024-05-02] MEDS: LIDOCAINE 4% PATCH 1 PATCH TOPICAL (09:02)
[2024-05-02] MEDS: TYLENOL 500 MG PO (09:03)
[2024-05-02] MEDS: RISPERDAL ORAL SOLUTION 0.25 MG PO (09:03)
[2024-05-02] MEDS: CEFTIN 250 MG PO (09:03)
[2024-05-02] MEDS: MIRALAX 17 GRAMS PO (09:03)
[2024-05-02] MEDS: KEPPRA 500 MG PO (09:05)
[2024-05-02] MEDS: ZOLOFT 50 MG PO (09:05)
[2024-05-02] MEDS: HEPARIN 5000 UNITS SC (09:06)
--- NOTE | 2024-05-02 10:38 | CM ---
Patient's family want patient to return to [facility], foster care case manager will follow up with admissions at [facility] and discuss.
Plan; To return to [facility].
New
Report [phone]
--- NOTE | 2024-05-02 13:05 | W.PN.HOSP.TC ---
Addendum entered and electronically signed by Issa Merchant MD 05/02/24 16:55:
[id number]
Original Note:
Today's Communication/Plan
-
dc on Cefuroxime to complete 7 day course
wean Risperdal outpatient
f/u pulm nodule if desired outpatient
f/u pcp outpatient
Assessment / Plan
Assessment / Plan
Physical Exam
General: Well Developed, Well Nourished and No Apparent Distress
HEENT: NormoCephalic, Moist mucous membranes and Atraumatic
Respiratory: Clear
Cardiac: S1/S2 and Regular Rhythm; No Murmur or Rub
GI: Soft, Non Tender, Non Distended and Normal Bowel Sounds; No Organomegaly
Musculoskeletal: No Clubbing, No Cyanosis and No Edema
Skin: No Rash
Neuro: AOx3
Psych: calm
89F CKD3 COPD TIA chronic meningioma HLD anxiety DVT/PE Glaucoma Cataracts pancreatic cyst legally blind wheelchair bound, Lt breast mass outpt work up pending, here for evaluation fatigue bradycardia likely urinary tract infection.
#Bradycardia/first-degree AV block
-Heart rate 30s to 40s
-TSH 3.7
-Cardiology consult appreciated no intervention recommended
#Urinary tract infection, hx frequent UTI
-Likely the source of her fatigue
-Urine culture appreciated E. coli pansensitive
-IV fluids completed
-Ceftriaxone transitioned to Cefuroxime - complete 7 day course for complicated UTI
#Gallbladder wall thickness
-mild on imaging
-no RUQ symptoms
#0.6 cm right lower lobe pulmonary nodule as compared to 0.4 cm on relative remote prior study May 10, 2019, indeterminate.
-f/u pulm if desired by pcp outpatient
#Acute Metabolic Encephalopathy/Delirium d/t UTI
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
#Intermittent psychosis, possible sundowning/delirium
minimize external stimuli as possible
PO risperidone 0.25 mg BIDprn agitation, IV Haldol 0.5 mg prn agitation last resort if not tolerating oral. (received one dose haldol so far this hospitalization) - can wean off rispderdal outpatient
psych eval appreciated scheduled risperdal started
#Hypernatremia
-IVF 1/2NS started gentle hydration
-resolved
#Mild Hyperkalemia
-potassium restricted diet
-resolved
# Constipation
-Continue senna
-once suppository attempted 04/28
-constipation since resolved
Lt Breast mass
-Outpatient mammography
reported hx CKD 3
ERIC resolved
-Initial Cr 1.1 improved to 0.7 likely baseline
-renal function stable
COPD
History of TIA
Chronic meningioma
-CT head shows meningioma slightly increased in size compared to 2020, no acute abn's noted
Hyperlipidemia
History of DVT/pulmonary embolism
Anxiety/depression
-Continue sertraline
Kidney stones
DNR/DNI
DVT prophylaxis heparin
Regular
More than 30 minutes spent in discharge including
Final examination of the patient
Summarizing hospital stay
Instructions for continuing care to all relevant caregivers
Preparation of discharge records, prescriptions, and referral forms
Total time spent (35 in minutes):
Anticipated Discharge: Today
Subjective/Interval History
-
Date of Service: May 02, 2024
no acute events, now AAOx3
Objective Data
-
Labs:
Laboratory Results
05/02/24
06:06
WBC 5.4
Hgb 11.2 L
Hct 33.4 L
Plt Count 161 D
Sodium 139 D
Potassium 4.0 D
Chloride 115 H
Carbon Dioxide 19 L
BUN 16
Creatinine 0.7
Glucose 70
Calcium 8.5
Vital Signs:
Vital Signs
Temp Pulse Resp BP Pulse Ox
97.7 F 50 16 105/58 94
05/02/24 07:00 05/02/24 07:00 05/02/24 07:00 05/02/24 07:00 05/02/24 07:00
I&O
05/01/24 05/02/24 05/03/24
06:59 06:59 06:59
Intake Total 500 / 500 720 / 720
Balance 500 / 500 720 / 720
Review of Systems
-
History Source: Patient
All other systems: Not reviewed unless documented (except stated)
Data Reviewed
-
CT Scan: Image personally visualized and interpreted and Report Reviewed by me
Labs: Labs Reviewed by me
--- NOTE | 2024-05-02 13:11 | W.DS.TRANS ---
DC Summary - [employer] Supervisor
-
Discharge Instructions:
Discharge Diagnosis/Procedures UTI
Delirium, Encephalopathy
Diet Low Cholesterol,Low Fat,2 Gram Sodium
Activity As tolerated
Instructions:
Stand-Alone Forms:
Changes to Home Medications: Yes
Discharge Medications:
DC Medications w/original date entered in [employer]
acetaminophen 325 mg tablet 650 mg PO Q4HPRN PRN mild pain/fever 04/27/24
acetaminophen 500 mg tablet 500 mg PO BID Pain 04/27/24
levetiracetam 500 mg tablet 500 mg PO BID Seizures 04/27/24
lidocaine 4 % topical patch (Lidocaine Pain Relief) 1 patch topical DAILY Pain 04/27/24
magnesium hydroxide 400 mg/5 mL oral suspension (Milk of Magnesia) 30 ml PO [id number] PRN if no bm in 3 days 04/27/24
phenylephrine HCl 0.25 % rectal suppository 1 supp DE [id number] PRN hemorrhoids 04/27/24
sennosides 8.6 mg tablet (senna) 17.2 mg PO QPM Constipation 04/27/24
sertraline 50 mg tablet (Zoloft) 50 mg PO DAILY Mental Health 04/27/24
cefuroxime axetil 250 mg tablet 250 mg PO BID 5 days #10 tabs 05/02/24
risperidone 1 mg/mL oral solution 0.25 mg (0.25 mL) PO BID 30 days #15 mL 05/02/24
Home Medication Changes
cefuroxime axetil 250 mg tablet 250 mg PO BID 5 days #10 tabs 05/02/24
risperidone 1 mg/mL oral solution 0.25 mg (0.25 mL) PO BID 30 days #15 mL 05/02/24
Pending Results: No
[2024-05-02 15:00] VITALS: BP 116/67
[2024-05-02] MEDS: SENOKOT 17.1999999999999993 MG PO (15:52)
== END 2024-05-02 17:30 | DRG 689 ==
LOC: 4 WEST ACU 08:53
PROVIDERS: Internal Medicine; ADMITTING PHYSICIAN Hospitalist; ATTENDING PHYSICIAN Internal Medicine; CONSULT PHYSICIAN Psychiatry & Neurology Psychiatry; EMERGENCY PHYSICIAN Emergency Medicine; OTHER PHYSICIAN Internal Medicine Cardiovascular Disease
DX: N39.0 Urinary tract infection, site not specified (principal); G93.41 Metabolic encephalopathy; E87.0 Hyperosmolality and hypernatremia; N17.9 Acute kidney failure, unspecified; Z66 Do not resuscitate; N20.0 Calculus of kidney; N18.30 Chronic kidney disease, stage 3 unspecified; J44.9 Chronic obstructive pulmonary disease, unspecified; E78.00 Pure hypercholesterolemia, unspecified; D32.9 Benign neoplasm of meninges, unspecified
CPT/HCPCS: 51701; 70450; 74177; 80048; 80053; 81003; 81015; 83735; 84100; 84443; 84484; 85025; 85027; 87071; 87086; 87186; 93005; 96374; 97163; 99285; Q9967

== ENCOUNTER 2024-05-09 00:23 | Emergency (ER) | payer MEDICARE, SELFPAY ==
[2024-05-09 00:27] VITALS: BP 128/61
[2024-05-09 00:29] VITALS: BP 128/61
--- NOTE | 2024-05-09 01:44 | ED.GENMED ---
History of Present Illness
General
Chief Complaint: Breast Problem
Source: [facility]
Exam Limitations: none
Time Seen by Provider: 05/09/24 01:32
Nursing documentation reviewed up to this point in time: agreed with
Travel History
Have you had any contact with someone who has COVID-19?: Unable to Answer
Do you have any symptoms of coronavirus? Fever > 100 degrees, chills, cough, shortness of breath, sore throat, loss of taste or smell, muscle aches, or headache?: Unable to Answer
History of Present Illness
History of Present Illness:
89 yr old female sent by [facility] for evaluation. Patient arrives she is awake alert when asked what brought patient here she reports she had pain under the left breast. In previous medical records it is documented patient has a left breast mass. It
is unclear patient has had this worked up. I spoke with staff ([facility]afe ) at [facility] who reports patient complained of chest pain and requested to go [facility]. Patient currently has no symptoms. She is awake alert oriented x 3
she has no complaints.
Past History
Past History
ED Past Medical History: CVA, Other (Gout, Osteroarthritis, Pagets) and Other (Kidney stones, meningioma, skin cancer, cataracts, rotator cuff injury, pancreatic cyst, DVT/PE); Negative Asthma, HTN, Hypercholesterolemia or NIDDM
ED Past Surgical History: Appendectomy and Gynecological (Hysterectomy)
Social History
Tobacco: Non-smoker
Alcohol: None
Drug: None
Personal:
Living: alone
Employment: Retired
Family History
Family History: Other ([place])
Review of Systems
Review of Systems
Allergies reviewed?: Yes
All Other Systems: ROS reviewed and negative except as documented in HPI and ROS
Constitutional: Reports no symptoms; Denies fever, fatigue or chills
Respiratory: Reports no symptoms
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
ABD/GI: Reports no symptoms
Musculoskeletal: Reports no symptoms
Skin: Reports no symptoms
Neurological: Reports no symptoms
Psychiatric: Reports no symptoms
Phy Exam
General Physical Exam
General Presentation: no apparent distress
General age: appears stated age
General Skin: warm and dry
General Habitus: normal
General Mental: alert
General Hydration: appears well hydrated
Cardiovascular Exam
Cardiovascular Exam: regular rate/rhythm, no murmur and normal peripheral pulses
Pulmonary Exam
Pulmonary Exam: lungs clear and no respiratory distress
Neurological Exam
Neurological Exam: alert and oriented x3
Musculoskeletal Exam
Musculoskeletal Exam: full ROM
Skin Exam
Skin Exam: normal color, warm/dry and other (palpable breast mass to left breast approx 3 o clock )
Psychiatric Exam
Psychiatric Exam: normal mood/affect
Course
Orders/Labs/Results
Orders:
Orders
05/09/24 01:58
IV Insert/Care/Rem.- Treatment PRN
05/09/24 01:59
Electrocardiogram (*1) Stat
Reason for Study: Other
Other Reason for Exam: chest pain
Cardiac Monitoring- Treatment ONCE
EKG- Treatment ONCE
05/09/24 03:03
Complete Blood Count/With Diff Urgent
05/09/24 03:55
Comprehensive Metabolic Panel Urgent
Troponin I Urgent
Abnormal Lab Results
05/09/24 05/09/24
03:03 03:55
RBC 4.01 L 10^6/uL
(4.20-5.40)
Hct 35.4 L %
(37.0-47.0)
RDW 17.0 H %
(11.5-14.5)
Abs Immat Gran (auto) 0.1 H 10^3/uL
(0-0.05)
Absolute Monos (auto) 1.0 H 10^3/uL
(0.1-0.6)
Immature Gran % 0.7 H %
(0-0.5)
Monocytes % 12.7 H %
(1.7-9.3)
Chloride 112 H mmol/L
(98-107)
BUN 34 H mg/dl
(7-17)
Calcium 8.1 L mg/dl
(8.4-10.2)
Alkaline Phosphatase 180 H U/L
(38-126)
Total Protein 5.3 L g/dl
(6.3-8.2)
Albumin 2.9 L g/dl
(3.5-5.0)
05/09/24 03:03
05/09/24 03:55
Vital Signs
Initial and Last Documented VS:
Initial Vital Signs
BP
128/61
05/09/24 00:27
Last Documented Vital Signs
Temp Pulse Resp BP Pulse Ox
98.5 F 72 16 131/71 96
05/09/24 00:29 05/09/24 04:30 05/09/24 04:30 05/09/24 04:30 05/09/24 04:30
MDM/Problems Addressed
MDM/Problems Addressed:
Patient is 89 old female from [facility] sent for evaluation. I spoke to medical staff, PSafe from [facility] who reports patient complained of chest pain prior to arrival. On arrival patient complains of pain under the left breast. Patient
has a known mass to the left breast which is palpated. Patient is asymptomatic here in the ER is no complaints. Case reviewed the physician will check labs and if negative discharge home
*Critical Care Note
Total Time (30-74mins, 75-104mins- exclusive of procedures): Not Applicable
ED Attending Note
-
Portions of this chart may have been created with voice recognition software.� Occasional wrong word or��sound alike� substitutions may have occurred due to the inherent limitations of voice recognition software.
Discharge Plan
Departure
Patient Disposition: Care Home/SNF
Date of Disposition: 05/09/24
Time of Disposition: 04:49
Patient with high blood pressure during this ER visit?: No
Condition: Fair
Covid-19: Not Applicable
Discharge Problem:
Chest pain
Instructions: Chest Pain PCP Follow Up
Prescriptions:
No Action
acetaminophen 325 mg tablet
650 mg PO Q4HPRN PRN (Reason: mild pain/fever)
lidocaine [Lidocaine Pain Relief] 4 % adhesive patch,medicated
1 patch TOPICAL DAILY
Patient Comments:
apply to lower back
levetiracetam 500 mg tablet
500 mg PO BID
acetaminophen 500 mg tablet
500 mg PO BID
magnesium hydroxide [Milk of Magnesia] 400 mg/5 mL suspension
30 ml PO [id number] PRN (Reason: if no bm in 3 days)
sertraline [Zoloft] 50 mg Tablet
50 mg PO DAILY
phenylephrine HCl 0.25 % Suppository
1 supp OK [id number] PRN (Reason: hemorrhoids)
sennosides [senna] 8.6 mg tablet
17.2 mg PO QPM
cefuroxime axetil 250 mg Tablet
250 mg PO BID 5 Days Qty: 10 0RF
risperidone 1 mg/mL Solution
0.25 mg PO BID 30 Days Qty: 15 0RF
Rx Instructions:
can wean off outpatient
Referrals:
Lore Slade CRNP [Family Provider] -
Interventions
Interventions:
*Risk Screen - Suicide Last Done: 05/09/24 00:29
*General Assessment Last Done: 05/09/24 00:29
*Neglect/Abuse Screening Last Done: 05/09/24 00:29
ED- Fall Risk Assessment Last Done: 05/09/24 02:34
*ED COVID-19 Vaccine History Last Done: 05/09/24 02:34
*Nursing Disposition Last Done: 05/09/24 06:55
ED-Skin Assessment Last Done: 05/09/24 02:34
Discharge Date and Time
Discharge Date/Time: 05/09/24 07:10
Print Language: BULGARIAN
[2024-05-09 03:01] VITALS: BP 136/61
[2024-05-09 03:17] LABS: % Basophils 0.9 % (0-2); % Eosinophils 2.1 % (0-6); % Immature Granulocytes 0.7 % (0-0.5); % Lymphocytes 20.7 % (20.5-51.1); % Monocytes 12.7 % (1.7-9.3); % Neutrophils 62.9 % (42.2-75.2); Absolute Basophils 0.1 10^3/uL (0-0.2); Absolute Eosinophils 0.2 10^3/uL (0-0.7); Absolute Immature Granulocytes 0.1 10^3/uL (0-0.05); Absolute Lymphocytes 1.7 10^3/uL (1.2-3.4); Absolute Neutrophils 5.1 10^3/uL (1.4-6.5); Hematocrit 35.4 % (37.0-47.0); Mean Corp Hgb Conc. 33.9 g/dL (33.0-37.0); Mean Corpuscular Hgb 29.9 pg (27.0-31.0); Mean Corpuscular Volume 88.3 fL (81.0-99.0); Mean Platelet Volume 9.4 fL (7.4-10.4); Nucleated Red Blood Cells % 0 %; Platelet Count 168 10^3/uL (130-400); Red Blood Cell Count 4.01 10^6/uL (4.20-5.40); White Blood Cell Count 8.2 10^3/uL (4.8-10.8)
[2024-05-09 03:30] VITALS: BP 122/61
[2024-05-09 04:00] VITALS: BP 133/68
[2024-05-09 04:30] VITALS: BP 131/71
[2024-05-09 04:32] LABS: ALT (SGPT) 11 U/L (0-35); AST (SGOT) 22 U/L (14-36); Albumin 2.9 g/dl (3.5-5.0); Alkaline Phosphatase 180 U/L (38-126); Blood Urea Nitrogen 34 mg/dl (7-17); Calcium 8.1 mg/dl (8.4-10.2); Carbon Dioxide 24 mmol/L (22-30); Chloride 112 mmol/L (98-107); Glucose 83 mg/dl (70-99); Potassium 4.4 mmol/L (3.5-5.1); Sodium 140 mmol/L (135-145); Total Bilirubin 0.4 mg/dl (0.2-1.3); Total Protein 5.3 g/dl (6.3-8.2); eGFR > 60.00
[2024-05-09 04:43] LABS: Troponin I 0.021 ng/ml
== END 2024-05-09 07:10 ==
LOC: EMR 00:23
PROVIDERS: Nurse Practitioner; EMERGENCY PHYSICIAN Emergency Medicine; FAMILY PHYSICIAN Nurse Practitioner Family
DX: R07.89 Other chest pain (principal); N63.20 Unspecified lump in the left breast, unspecified quadrant; M10.9 Gout, unspecified; M19.90 Unspecified osteoarthritis, unspecified site; Z87.442 Personal history of urinary calculi; Z86.73 Personal history of transient ischemic attack (TIA), and cerebral infarction without residual deficits; Z85.828 Personal history of other malignant neoplasm of skin; Z86.718 Personal history of other venous thrombosis and embolism; Z88.1 Allergy status to other antibiotic agents
CPT/HCPCS: 99284; 80053; 84484; 85025; 93005